=== PATIENT | male | born 1985 | race American Indian/Alaskan Native ===

== ENCOUNTER 2020-08-30 19:31 | Emergency (ER) | payer SELFPAY ==
[2020-08-30 20:47] VITALS: BP 160/118
[2020-08-30] MEDS ORDERED: ACETAMINOPHEN 500 MG TAB PO ONE (22:06)
[2020-08-30] MEDS ORDERED: TETANUS,DIPH,PERTUSS(ACELL) VACCINE 0.5 ML SYRINGE IM ONE (22:06)
--- NOTE | 2020-08-30 22:14 | Emergency Department Report ---
ED General Adult HPI - General Chief complaint: Wound/Laceration Stated complaint: MOUTH/LIP LAC/HEADACHE Time Seen by Provider: 08/30/20 21:40 Source: patient Mode of arrival: Ambulatory Limitations: No Limitations - History of Present Illness Initial comments: 35-year-old male patient presents emergency department with complaints of headache and lip laceration occurring approximately 24 hours ago. Patient states he was at a nightclub in [place] when he fell from a standing position and struck the back of his head on the floor. There was no resulting loss of consciousness. Patient is able to recall the events surrounding the injury in entirety. Patient is not anticoagulated. Took Motrin with limited relief. Cannot recall last tetanus immunization. Denies vision changes, seizure, syncope, neck pain, paresthesias, numbness, weakness, nausea, vomiting. Denies all other complaints at this time. - Related Data Previous Rx's Medication Instructions Recorded Last Taken Type Chlorhexidine Mouthwash [Peridex] 118 ml MM TID #1 bottle 08/30/20 Unknown Rx Allergies Allergy/AdvReac Type Severity Reaction Status Date / Time No Known Allergies Allergy Unverified 08/30/20 20:44 ED Review of Systems ROS: Stated complaint: MOUTH/LIP LAC/HEADACHE Other details as noted in HPI Other: CARDIOVASCULAR: Negative for chest pain. PULMONARY: Negative for dyspnea. GASTROINTESTINAL: Negative for abdominal pain. MUSCULOSKELETAL: Negative for back pain and neck pain. NEUROLOGICAL: Positive for headache. INTEGUMENTARY: Positive for laceration. ED Past Medical Hx - Past Medical History Previous Medical History?: No - Surgical History Past Surgical History?: No - Social History Smoking Status: Current Every Day Smoker Substance Use Type: Alcohol, Marijuana - Medications Home Medications: Home Medications Medication Instructions Recorded Confirmed Last Taken Type Chlorhexidine Mouthwash [Peridex] 118 ml MM TID #1 bottle 08/30/20 Unknown Rx ED Physical Exam - General Limitations: No Limitations - Other Other exam information: Airway: Patent and intact. Trachea is midline. Breathing: Clear to auscultation bilaterally. No respiratory distress. Circulation: Regular rate and rhythm, no murmurs, no pulse deficit, normal peripheral perfusion. Deficit (Neuro): Awake, alert, appropriately interactive. GCS 15. Strength and sensation intact. Follows commands. No focal deficits. Ambulatory without assistance. HEENT: Normocephalic, atraumatic. EOMI. PERRL. No hemotympanum. Nares patent. V- shaped laceration to the mucosal surface of the lower lip. The laceration is not [id number]. There is no involvement of the frenulum or the Schulter border. No malocclusion. Facial bones are stable. No ecchymosis suggestive of basilar skull fracture. Neck: No posterior midline cervical tenderness. No step-offs. Active rotation of the cervical spine intact bilaterally. Chest Wall: Equal chest rise. Chest wall is non-tender, no deformity, no crepitus. Abdominal: Soft, non-tender. No guarding, rigidity, or rebound. No discoloration. No organomegaly. Skin: No abrasions, lacerations, or ecchymosis. Back: No midline thoracic or lumbar tenderness. No step-offs. Extremities: Non-tender. Moves all four extremities spontaneously. Full range of motion intact. No apparent deformity. Neurovascular and motor/sensory function intact. ED Course Vital Signs 08/30/20 20:44 Temperature 98.5 F Pulse Rate 56 L Respiratory 18 Rate Blood Pressure 160/118 O2 Sat by Pulse 99 Oximetry ED Medical Decision Making - Medical Decision Making Differential diagnosis including but not limited to: laceration, abrasion, contusion, concussion, skull fracture, intracranial hemorrhage Patient presents with complaints of acute traumatic headache. Patient meets none of the following criteria: age < 16 years, (+) anticoagulation, seizure following injury, GCS < 15, clinical evidence of skull fracture, > 2 episodes of vomiting, age > 65 years, retrograde amnesia to the event, "dangerous" mechanism. Therefore, according to the [place] CT Rule, patient does not have a statistically significant chance of an intracranial injury requiring neurosurgical intervention; CT of the head is not indicated at this time. On reevaluation, patient remains stable. Repeat neurological exam remains intact. Tetanus updated. Patient is not a candidate for primary wound closure due to location of the wound and delayed presentation >24 hours post-injury. He will be prescribed antiseptic mouthwash for infection prevention. The patient is alert, talkative, interactive and in no distress. The patient is neurovascularly intact and ambulatory in emergency department. History, exam, diagnostic testing, and current condition do not suggest worrisome pathology to warrant further testing, emergent intervention, admission, or specialist evaluation at this point. Additional testing such as CT/MRI or lumbar puncture is not indicated at this time, but should be considered if symptoms worsen or recur. Discussed findings, presumptive diagnosis, need for follow-up and specific signs/symptoms that should prompt immediate return to the emergency department. Instructions were explained in detail to the patient in addition to giving written discharge information. Patient expressed understanding and was given the opportunity to ask questions, all of which were satisfactorily answered prior to discharge home. Critical care attestation.: If time is entered above; I have spent that time in minutes in the direct care of this critically ill patient, excluding procedure time. ED Disposition Clinical Impression: Contusion of occipital region of scalp Qualifiers: Encounter type: initial encounter Qualified Code(s): S00.03XA - Contusion of scalp, initial encounter Lip laceration Qualifiers: Encounter type: initial encounter Qualified Code(s): S01.511A - Laceration without foreign body of lip, initial encounter Disposition: TO HOME OR SELFCARE Is pt being admited?: No Does the pt Need Aspirin: No Condition: Stable Instructions: Facial or Scalp Contusion, [id number], Mouth Laceration Additional Instructions: Take Tylenol every 4 hours as needed for pain. Use antiseptic mouthwash as directed to prevent infection. Apply ice to affected area as needed for pain/swelling. Follow-up with primary care provider this week. Call tomorrow to schedule an appointment. Return to the emergency department immediately for new or worsening symptoms. Specifically, return to the emergency department immediately for vomiting, seizure, loss of consciousness, difficulty walking, numbness, paralysis, or any other concerns. Prescriptions: Chlorhexidine Mouthwash [Peridex] 118 ml MM TID #1 bottle Referrals: [facility] [Provider Group] - 3-5 Days Time of Disposition: 22:24
== END 2020-08-31 00:06 | disposition home or self-care (01) ==
LOC: ED 19:31
DX: S01.511A Laceration without foreign body of lip, initial encounter (principal); F17.200 Nicotine dependence, unspecified, uncomplicated; F12.90 Cannabis use, unspecified, uncomplicated; Z72.89 Other problems related to lifestyle; Z79.899 Other long term (current) drug therapy; W22.8XXA Striking against or struck by other objects, initial encounter; Y93.89 Activity, other specified; Y92.89 Other specified places as the place of occurrence of the external cause; Y99.8 Other external cause status
CPT/HCPCS: 90471; 90715; 99282